=== PATIENT | male | born 1965 | race Caucasian/White ===

== ENCOUNTER 2018-04-30 16:07 | Emergency (ER) | payer OTHER ==
[~2018-04-30] VITALS: Ht 172.7 cm; Wt 65.8 kg
[~2018-04-30 16:07] MED LIST: LEVAQUIN750 M1 PO; MOTRIN800 MG PO; PREDNISONE10 MG PO; THERAGRAN1 TAB PO; VITAMIN D50000 I3 PO
[2018-04-30 16:08] VITALS: BP 132/82
== END 2018-04-30 16:23 | disposition left against medical advice (07) ==
LOC: ED 16:07
DX: R06.02 Shortness of breath (principal); Z53.21 Procedure and treatment not carried out due to patient leaving prior to being seen by health care provider; F17.200 Nicotine dependence, unspecified, uncomplicated; Z90.49 Acquired absence of other specified parts of digestive tract; Z79.2 Long term (current) use of antibiotics

== ENCOUNTER 2018-06-26 21:29 | Emergency (ER) | payer OTHER ==
[~2018-06-26] VITALS: Ht 175.2 cm; Wt 81.6 kg
--- NOTE | ~2018-06-26 | EKG ---
[place], [place] ELECTROCARDIOGRAM REPORT NAME: HELDER BROWN UNIT #: [id number] ROOM: DOCTOR: EPIPHANY DRAFT REPORT BIRTHDATE: [birth year] [facility] Test Date: 2018-06-26 Test Time: 22:05:17 Pat Name: HELDER BROWN Department: ER Room: Gender: M Television Mechanic: ALIZE : 1965 Requested By: GURWINDER LOWRY Order Number: [id number] Reading MD: Zack Birmingham MD Measurements Intervals [place] Rate: 81 P: 84 MN: 160 QRS: 83 QRSD: 87 T: 57 QT: 367 QTc: 426 Interpretive Statements Sinus rhythm Possible left atrial enlargement Borderline low voltage, extremity leads Compared to ECG 04/14/2018 15:09:15 Sinus tachycardia no longer present Electronically Signed On 06-27-2018 7:57:01 PST by Zack Birmingham MD CM:EKGRPT:ELECTROCARDIOGRAM REPORT [id number] GURWINDER LOWRY MD EPIPHANY DRAFT REPORT GURWINDER LOWRY MD
[2018-06-26 22:20] VITALS: BP 125/70
[2018-06-26 22:40] LABS: BASO # 0.1 10*3/uL (0.0-0.1); BASO % 1.7 % (0.0-1.0); EOS # 0.4 10*3/uL (0.0-0.4); EOS % 6.6 % (1.0-4.0); HEMATOCRIT 42.3 % (42.0-52.0); HEMOGLOBIN 14.3 g/dl (14.0-18.0); LYMPH # 1.7 10*3/uL (1.3-4.4); LYMPH % 28.9 % (27.0-41.0); MEAN CORPUSCULAR HGB 31.4 pg (27.0-31.0); MEAN CORPUSCULAR HGB CONC 33.8 g/dl (33.0-37.0); MEAN PLATELET VOLUME 9.5 fl (9.6-12.3); MONO # 0.6 10*3/uL (0.1-1.0); MONO % 10.8 % (3.0-9.0); NEUT # 3.1 10*3/uL (2.3-7.9); NEUT % 51.7 % (47.0-73.0); PLATELET COUNT AUTOMATED 181 10*3/uL (130-400); RED BLOOD COUNT 4.55 10*6/uL (4.50-5.90); RED CELL DISTRI WIDTH 14.8 % (0-14.5)
[2018-06-26 22:58] LABS: ALBUMIN 3.2 gm/dl (3.1-4.5); ALKALINE PHOSPHATASE 71 U/L (45-117); BUN 5 mg/dl (7-24); CHLORIDE 100 mmol/L (98-107); CREATININE 0.76 mg/dL (0.70-1.30); POTASSIUM 4.2 mmol/L (3.5-5.1); SGOT/AST 32 IU/L (3-35); SGPT/ALT 28 U/L (12-78); SODIUM 132 mmol/L (136-145); TOTAL PROTEIN 6.5 gm/dL (6.4-8.2)
[2018-06-26 23:03] LABS: TROPONIN I < 0.015 ng/ml (<0.045)
[2018-06-26] MEDS ORDERED: PREDNISONE10 MG PO (23:45)
[2018-06-26] MEDS ORDERED: ZITHROMAX250 MG PO (23:45)
[2018-06-26] MEDS ORDERED: PROAIR HFA8.5 GM INH (23:48)
== END 2018-06-27 00:01 | disposition home or self-care (01) ==
LOC: ED 21:29
PROVIDERS: Emergency Medicine Emergency Medical Services
DX: J44.1 Chronic obstructive pulmonary disease with (acute) exacerbation (principal); F17.210 Nicotine dependence, cigarettes, uncomplicated; Z90.49 Acquired absence of other specified parts of digestive tract

== ENCOUNTER → 2019-03-27 | Outpatient (CLI) | payer MEDICAID ==
[~2019-03-27] MED LIST changes: +B12,B-12,B 12500 MC1 PO; +CEPHALEXIN500 M1 PO; +DALI500T PO; +K-TAB10 MEQ PO; +KEFLEX500 M1 PO; +LASIX20 MG PO; +MEDROL DOSEPAK4 MG PO; +NICODERM CQ1 EAC2 TD; +NICODERM T; +PROAIR HFA8.5 GM INH; +PROVENTIL HFA6.7 GM INH; +SPIRIVA18 MCG PO; +SYMB160 INH; +VENTOLIN 02.5 MG/3 M INH; +ZITHROMAX250 MG PO
== END | disposition home or self-care (01) ==
LOC: US 15:30
DX: R60.0 Localized edema (principal)

== ENCOUNTER 2019-04-07 22:56 | Emergency (ER) | payer MEDICAID ==
[~2019-04-07] VITALS: Ht 175.2 cm; Wt 90.1 kg
--- NOTE | ~2019-04-07 | EKG ---
[place], [place] ELECTROCARDIOGRAM REPORT NAME: HEDLER BROWN UNIT #: [id number] ROOM: DOCTOR: EPIPHANY DRAFT REPORT BIRTHDATE: [birth year] [facility] Test Date: 2019-04-07 Test Time: 23:36:10 Pat Name: HELDER BROWN Department: ED Room: Gender: M [employer] Etl Developer: Zack Nolan : 1965 Requested By: ENRIQUE CANO Order Number: [id number] Reading MD: Caro Ibarra MD Measurements Intervals [place] Rate: 90 P: 75 AR: 156 QRS: 81 QRSD: 92 T: 41 QT: 361 QTc: 442 Interpretive Statements Sinus rhythm Borderline low voltage, extremity leads Compared to ECG 12/09/2018 13:44:31 No significant changes Electronically Signed On 04-21-2019 7:28:04 PDT by Caro Ibarra MD CM:EKGRPT:ELECTROCARDIOGRAM REPORT [id number] ENRIQUE COE DRAFT REPORT ENRIQUE CANO DO
[~2019-04-07 22:56] MED LIST changes: -KEFLEX500 M1 PO
[2019-04-08 00:13] LABS: BASO # 0.1 10*3/uL (0.0-0.1); BASO % 0.8 % (0.0-1.0); EOS # 0.5 10*3/uL (0.0-0.4); EOS % 5.2 % (1.0-4.0); HEMOGLOBIN 14.7 g/dl (14.0-18.0); LYMPH # 1.9 10*3/uL (1.3-4.4); LYMPH % 22.5 % (27.0-41.0); MEAN CELL VOLUME 93.8 fl (80.0-94.0); MEAN CORPUSCULAR HGB 30.6 pg (27.0-31.0); MEAN CORPUSCULAR HGB CONC 32.7 g/dl (33.0-37.0); MEAN PLATELET VOLUME 9.5 fl (9.6-12.3); MONO # 0.6 10*3/uL (0.1-1.0); MONO % 7.4 % (3.0-9.0); NEUT # 5.5 10*3/uL (2.3-7.9); NEUT % 63.6 % (47.0-73.0); PLATELET COUNT AUTOMATED 262 10*3/uL (130-400); RED CELL DISTRI WIDTH 13.5 % (0-14.5); WHITE BLOOD COUNT 8.6 10*3/uL (4.8-10.8)
[2019-04-08 00:24] LABS: ACT PARTIAL THROMBO TIME 26.2 SECONDS (20.0-32.1); INTERNATIONAL NORM RATIO 0.9 (2.0-3.5)
[2019-04-08 00:26] VITALS: BP 114/74
[2019-04-08 00:30] LABS: ALBUMIN 2.9 gm/dl (3.1-4.5); ALKALINE PHOSPHATASE 70 U/L (45-117); BUN 7 mg/dl (7-24); CHLORIDE 102 mmol/L (98-107); CREATININE 0.88 mg/dL (0.70-1.30); LIPASE 117 U/L (73-393); POTASSIUM 3.9 mmol/L (3.5-5.1); SGOT/AST 15 IU/L (3-35); SGPT/ALT 18 U/L (12-78); SODIUM 135 mmol/L (136-145); TOTAL PROTEIN 6.8 gm/dL (6.4-8.2); TROPONIN I < 0.015 ng/ml (<0.045)
[2019-04-08 00:50] LABS: BILIRUBIN NEGATIVE (NEGATIVE); BLOOD NEGATIVE (NEGATIVE); CLARITY CLEAR (CLEAR); COLOR YELLOW (YELLOW); GLUCOSE NEGATIVE (NEGATIVE); KETONE NEGATIVE (NEGATIVE); LEUKO ESTERASE NEGATIVE (NEGATIVE); NITRITE NEGATIVE (NEGATIVE); SPECIFIC GRAVITY <= 1.005 (1.005-1.030); UROBILINOGEN 0.2 E.U./dl (0.2-1.0)
[2019-04-08] MEDS ORDERED: KEFLEX500 M1 PO (01:02)
[2019-04-08 01:15] LABS: RBC 0-2 rbc/hpf (0-2)
== END 2019-04-08 01:30 | disposition home or self-care (01) ==
LOC: ED 22:56
PROVIDERS: Student in an Organized Health Care Education/Training Program
DX: Z04.3 Encounter for examination and observation following other accident (principal); J44.9 Chronic obstructive pulmonary disease, unspecified; Z72.0 Tobacco use; Z79.899 Other long term (current) drug therapy; W19.XXXA Unspecified fall, initial encounter; Y93.89 Activity, other specified; Y92.89 Other specified places as the place of occurrence of the external cause; Y99.8 Other external cause status

== ENCOUNTER → 2019-05-01 | Outpatient (CLI) | payer MEDICAID ==
[~2019-05-01] MED LIST changes: +KEFLEX500 M1 PO
[2019-05-02 05:04] LABS: ALPHA-1-ANTITRYPSIN, SERUM 185 mg/dL (90-200)
== END | disposition home or self-care (01) ==
LOC: LAB 11:56
PROVIDERS: Internal Medicine Critical Care Medicine
DX: J44.9 Chronic obstructive pulmonary disease, unspecified (principal)

== ENCOUNTER → 2019-10-02 | Outpatient (CLI) | payer MEDICAID ==
[2019-10-02 10:32] LABS: HEMATOCRIT 48.7 % (42.0-52.0); HEMOGLOBIN 15.6 g/dl (14.0-18.0); MEAN CORPUSCULAR HGB 29.2 pg (27.0-31.0); MEAN PLATELET VOLUME 9.8 fl (9.6-12.3); RED BLOOD COUNT 5.35 10*6/uL (4.50-5.90); RED CELL DISTRI WIDTH 14.1 % (0-14.5); WHITE BLOOD COUNT 9.3 10*3/uL (4.8-10.8)
[2019-10-02 10:49] LABS: ALBUMIN 3.3 gm/dl (3.1-4.5); ALKALINE PHOSPHATASE 80 U/L (45-117); BUN 10 mg/dl (7-24); CHLORIDE 108 mmol/L (98-107); CHOLESTEROL 143 mg/dL (<200); CREATININE 1.22 mg/dL (0.70-1.30); HDL CHOLESTEROL 48 mg/dl (40-60); LDL CHOLESTEROL 83 mg/dL (9-159); SGOT/AST 12 IU/L (3-35); SGPT/ALT 18 U/L (12-78); SODIUM 140 mmol/L (136-145); TOTAL PROTEIN 7.5 gm/dL (6.4-8.2); TRIGLYCERIDES 62 mg/dl (<150); VLDL CHOLESTEROL 12 mg/dL (6-40)
== END | disposition home or self-care (01) ==
LOC: LAB 10:17
PROVIDERS: Physician Assistant
DX: J44.1 Chronic obstructive pulmonary disease with (acute) exacerbation (principal); G62.9 Polyneuropathy, unspecified; F17.200 Nicotine dependence, unspecified, uncomplicated

== ENCOUNTER 2020-03-09 14:17 | Observation (INO) | payer MEDICAID ==
[~2020-03-09] VITALS: Ht 175.2 cm; Wt 85.3 kg
[2020-03-09 14:41] LABS: BASO # 0.1 10*3/uL (0.0-0.1); EOS # 0.2 10*3/uL (0.0-0.4); EOS % 2.3 % (1.0-4.0); HEMATOCRIT 48.1 % (42.0-52.0); LYMPH # 1.3 10*3/uL (1.3-4.4); LYMPH % 13.8 % (27.0-41.0); MEAN CELL VOLUME 86.5 fl (80.0-94.0); MEAN CORPUSCULAR HGB 28.6 pg (27.0-31.0); MEAN CORPUSCULAR HGB CONC 33.1 g/dl (33.0-37.0); MEAN PLATELET VOLUME 9.3 fl (9.6-12.3); MONO # 0.6 10*3/uL (0.1-1.0); MONO % 6.2 % (3.0-9.0); NEUT % 76.4 % (47.0-73.0); PLATELET COUNT AUTOMATED 293 10*3/uL (130-400); RED BLOOD COUNT 5.56 10*6/uL (4.50-5.90); RED CELL DISTRI WIDTH 14.2 % (0-14.5); WHITE BLOOD COUNT 9.1 10*3/uL (4.8-10.8)
[2020-03-09 14:52] LABS: ACT PARTIAL THROMBO TIME 24.9 SECONDS (20.0-32.1); INTERNATIONAL NORM RATIO 0.9 (2.0-3.5)
[2020-03-09 14:59] LABS: ALBUMIN 3.1 gm/dl (3.1-4.5); ALKALINE PHOSPHATASE 97 U/L (45-117); BUN 8 mg/dl (7-24); CHLORIDE 108 mmol/L (98-107); CREATININE 1.11 mg/dL (0.70-1.30); POTASSIUM 4.1 mmol/L (3.5-5.1); SGOT/AST 19 IU/L (3-35); SGPT/ALT 22 U/L (12-78); SODIUM 138 mmol/L (136-145); TOTAL PROTEIN 7.5 gm/dL (6.4-8.2)
[2020-03-09 15:02] LABS: TROPONIN I < 0.015 ng/ml (<0.045)
[2020-03-09 15:49] VITALS: BP 113/72
[2020-03-09 16:15] VITALS: BP 108/81
[2020-03-09 17:11] VITALS: BP 114/68
[2020-03-09 17:19] VITALS: BP 114/68
[2020-03-09 18:00] VITALS: BP 120/70
[2020-03-09 20:00] VITALS: BP 119/78
[2020-03-10] VITALS: BP 112/72
[2020-03-10 06:07] LABS: BUN 14 mg/dl (7-24); CHLORIDE 105 mmol/L (98-107); CHOLESTEROL 165 mg/dL (<200); CREATININE 1.04 mg/dL (0.70-1.30); POTASSIUM 3.9 mmol/L (3.5-5.1); SODIUM 136 mmol/L (136-145); TRIGLYCERIDES 43 mg/dl (<150); VLDL CHOLESTEROL 9 mg/dL (6-40)
[2020-03-10 06:18] LABS: HDL CHOLESTEROL 44 mg/dl (40-60); LDL CHOLESTEROL 112 mg/dL (9-159); THYROID STIM HORMONE (HS) 0.614 uIU/ml (0.358-4.75)
[2020-03-10 06:27] LABS: HEMATOCRIT 46.9 % (42.0-52.0); MEAN CORPUSCULAR HGB 28.8 pg (27.0-31.0); MEAN CORPUSCULAR HGB CONC 32.4 g/dl (33.0-37.0); MEAN PLATELET VOLUME 9.9 fl (9.6-12.3); PLATELET COUNT AUTOMATED 249 10*3/uL (130-400); RED BLOOD COUNT 5.27 10*6/uL (4.50-5.90); RED CELL DISTRI WIDTH 14.4 % (0-14.5); WHITE BLOOD COUNT 7.3 10*3/uL (4.8-10.8)
[2020-03-10 06:48] LABS: PLATELET SUFFICIENCY NORMAL (NORMAL); TOTAL CELLS COUNTED 100 #CELLS
[2020-03-10 06:49] LABS: BURR CELLS FEW
[2020-03-10 08:00] VITALS: BP 118/72
[2020-03-10 08:19] LABS: VITAMIN D, 25-HYDROXY 18.7 ng/mL (30-100)
[2020-03-10 12:00] VITALS: BP 122/72
[2020-03-10] MEDS ORDERED: VITAMIN D350 MC2 PO (14:35)
== END 2020-03-10 15:55 | disposition home or self-care (01) ==
LOC: ED 14:17 → 4E 17:10 → EDHOLD 17:10 → 4E 17:10
PROVIDERS: Emergency Medicine; Internal Medicine; ADMIT Internal Medicine
DX: R07.89 Other chest pain (principal); R06.00 Dyspnea, unspecified; F10.129 Alcohol abuse with intoxication, unspecified; F17.200 Nicotine dependence, unspecified, uncomplicated; J44.9 Chronic obstructive pulmonary disease, unspecified; G31.84 Mild cognitive impairment of uncertain or unknown etiology; R00.0 Tachycardia, unspecified; E87.8 Other disorders of electrolyte and fluid balance, not elsewhere classified; R65.10 Systemic inflammatory response syndrome (SIRS) of non-infectious origin without acute organ dysfunction; R73.9 Hyperglycemia, unspecified; E83.41 Hypermagnesemia

== ENCOUNTER → 2020-10-07 | Outpatient (CLI) | payer MEDICAID ==
[~2020-10-07] MED LIST changes: +VITAMIN D350 MC2 PO
== END | disposition home or self-care (01) ==
LOC: RAD 13:14
PROVIDERS: ATTEND Physician Assistant
DX: J44.9 Chronic obstructive pulmonary disease, unspecified (principal); E53.8 Deficiency of other specified B group vitamins; G62.9 Polyneuropathy, unspecified; F17.210 Nicotine dependence, cigarettes, uncomplicated; Z12.5 Encounter for screening for malignant neoplasm of prostate

== ENCOUNTER → 2021-07-26 | Outpatient (CLI) | payer MEDICAID ==
[~2021-07-26] MED LIST changes: +MELOXICAM15 MG PO
== END | disposition home or self-care (01) ==
LOC: CARD 00:53
PROVIDERS: ATTEND Internal Medicine Cardiovascular Disease
DX: R06.02 Shortness of breath (principal); R06.00 Dyspnea, unspecified; Z72.0 Tobacco use

== ENCOUNTER → 2021-12-22 | Outpatient (CLI) | payer MEDICAID ==
[2021-12-22 15:08] LABS: CHOLESTEROL 141 mg/dL (<200); LDL CHOLESTEROL 84 mg/dL (9-159); TRIGLYCERIDES 94 mg/dl (<150)
== END | disposition home or self-care (01) ==
LOC: LAB 14:11
PROVIDERS: ATTEND Internal Medicine
DX: I25.119 Atherosclerotic heart disease of native coronary artery with unspecified angina pectoris (principal)

== ENCOUNTER → 2021-12-30 | Outpatient (CLI) | payer MEDICAID | END | disposition home or self-care (01) | LOC: CARD 00:33 | PROVIDERS: ATTEND Internal Medicine | DX: I25.119 Atherosclerotic heart disease of native coronary artery with unspecified angina pectoris (principal); I44.7 Left bundle-branch block, unspecified ==

== ENCOUNTER → 2022-03-01 | Outpatient (CLI) | payer MEDICAID | END | disposition home or self-care (01) | LOC: ORTHO 01:42 | PROVIDERS: ATTEND Orthopaedic Surgery | DX: M25.521 Pain in right elbow (principal) ==

== ENCOUNTER 2023-01-28 05:42 | Emergency (ER) | payer MEDICAID ==
[~2023-01-28] VITALS: Ht 175.2 cm; Wt 77.1 kg
[2023-01-28 06:22] LABS: BASO # 0.1 10*3/uL (0.0-0.1); BASO % 1.4 % (0.0-1.0); EOS # 0.5 10*3/uL (0.0-0.4); EOS % 8.3 % (1.0-4.0); HEMATOCRIT 49.1 % (42.0-52.0); LYMPH # 1.1 10*3/uL (1.3-4.4); MEAN CELL VOLUME 88.2 fl (80.0-94.0); MEAN CORPUSCULAR HGB 29.4 pg (27.0-31.0); MEAN CORPUSCULAR HGB CONC 33.4 g/dl (33.0-37.0); MEAN PLATELET VOLUME 9.5 fl (9.6-12.3); MONO # 0.3 10*3/uL (0.1-1.0); MONO % 4.9 % (3.0-9.0); NEUT # 3.9 10*3/uL (2.3-7.9); NEUT % 67.1 % (47.0-73.0); PLATELET COUNT AUTOMATED 209 10*3/uL (130-400); RED BLOOD COUNT 5.57 10*6/uL (4.50-5.90); WHITE BLOOD COUNT 5.9 10*3/uL (4.8-10.8)
[2023-01-28 07:17] LABS: ALKALINE PHOSPHATASE 71 U/L (46-116); BUN 6 mg/dl (9-23); CHLORIDE 102 mmol/L (98-107); POTASSIUM 4.4 mmol/L (3.4-5.1); SGPT/ALT 14 U/L (10-49); TOTAL PROTEIN 7.5 gm/dL (6.0-8.0)
[2023-01-28 07:28] VITALS: BP 126/70
[2023-01-28] MEDS ORDERED: PREDNISONE10 MG PO (09:07)
[2023-01-28] MEDS ORDERED: OMNICEF300 MG PO (09:07)
[2023-01-28] MEDS ORDERED: ZITHROMAX250 MG PO (09:07)
== END 2023-01-28 09:27 | disposition home or self-care (01) ==
LOC: ED 05:42
PROVIDERS: Internal Medicine
DX: J44.1 Chronic obstructive pulmonary disease with (acute) exacerbation (principal); F17.200 Nicotine dependence, unspecified, uncomplicated; Z79.899 Other long term (current) drug therapy; Z90.49 Acquired absence of other specified parts of digestive tract

== ENCOUNTER 2024-01-02 08:49 | Inpatient (IN) | payer MEDICAID ==
[~2024-01-02] VITALS: Ht 175.3 cm; Wt 92.5 kg
[~2024-01-02 08:49] MED LIST changes: +OMNICEF300 MG PO; +PREDNISONE50 MG PO; +VENT7GM INH; +VITAMIN D350 MCG PO
[2024-01-02 08:59] VITALS: BP 118/78
[2024-01-02] MEDS ORDERED: Albuterol Sulf/Ipratropium 3 ML VIAL NEB ONE (09:15)
[2024-01-02] MEDS ORDERED: methylPREDNISolone sod succ 125 MG VIAL IV ONE (09:15)
[2024-01-02 09:17] LABS: BASO # 0.1 10*3/uL (0.0-0.1); BASO % 0.6 % (0.0-1.0); EOS % 0.4 % (1.0-4.0); LYMPH # 1.3 10*3/uL (1.3-4.4); LYMPH % 15.5 % (27.0-41.0); MEAN CELL VOLUME 90.3 fl (80.0-94.0); MEAN CORPUSCULAR HGB 29.4 pg (27.0-31.0); MEAN CORPUSCULAR HGB CONC 32.5 g/dl (33.0-37.0); MEAN PLATELET VOLUME 9.3 fl (9.6-12.3); MONO # 0.4 10*3/uL (0.1-1.0); MONO % 4.7 % (3.0-9.0); NEUT # 6.5 10*3/uL (2.3-7.9); NEUT % 78.3 % (47.0-73.0); PLATELET COUNT AUTOMATED 186 10*3/uL (130-400); RED BLOOD COUNT 4.87 10*6/uL (4.50-5.90); RED CELL DISTRI WIDTH 14.5 % (0-14.5); WHITE BLOOD COUNT 8.3 10*3/uL (4.8-10.8)
[2024-01-02 09:30] LABS: ACT PARTIAL THROMBO TIME 24.3 SECONDS (20.0-32.1)
[2024-01-02 09:34] LABS: ALKALINE PHOSPHATASE 61 U/L (46-116); BUN 7 mg/dl (9-23); CHLORIDE 105 mmol/L (98-107); LIPASE 31 U/L (12-53); POTASSIUM 3.9 mmol/L (3.4-5.1); SGPT/ALT 9 U/L (5-49); TOTAL PROTEIN 6.7 gm/dL (6.0-8.0)
[2024-01-02 09:37] LABS: ETHYL ALCOHOL < 3.0 mg/dl (<3)
[2024-01-02] MEDS ORDERED: AZITHROMYCIN 250 ML IV ONE (11:00)
[2024-01-02] MEDS ORDERED: Ceftriaxone Sodium 1 GM/10 ML SYR IV ONE (11:00)
[2024-01-02] MEDS ORDERED: BISACODYL 10 MG SUPP R PRN (13:40)
[2024-01-02] MEDS ORDERED: Acetaminophen/Hydrocodone 5 MG/325 MG TABLET PO PRN (13:40)
[2024-01-02] MEDS ORDERED: BISACODYL 5 MG TAB PO PRN (13:40)
[2024-01-02] MEDS ORDERED: ACETAMINOPHEN 325 MG TAB PO PRN (13:40)
[2024-01-02] MEDS ORDERED: Ondansetron Hydrochloride 4 MG/2 ML VIAL IV PRN (13:40)
[2024-01-02] MEDS ORDERED: ACETAMINOPHEN 650 MG SUPP R PRN (13:40)
[2024-01-02] MEDS ORDERED: Albuterol Sulf/Ipratropium 3 ML VIAL NEB SCH (13:45)
[2024-01-02 20:10] VITALS: BP 149/73
[2024-01-02 20:37] VITALS: BP 117/73
[2024-01-02 21:39] LABS: BILIRUBIN Negative (Negative); BLOOD Negative (Negative); CLARITY Clear (Clear); COLOR Yellow (Yellow); GLUCOSE Negative (Negative); KETONE Negative (Negative); LEUKO ESTERASE Negative (Negative); NITRITE Negative (Negative); PH 6.5 (4.5-8.0)
[2024-01-02 21:45] LABS: RBC 0-2 rbc/hpf (0-2); WBC 0-2 wbc/hpf (0-5)
[2024-01-02 21:46] LABS: URINE AMPHETAMINES Negative (1000ng/ml); URINE BARBITURATES Negative (200ng/ml); URINE BENZODIAZEPINES Negative (200ng/ml); URINE CANNABINOIDS (THC) Negative (50ng/ml); URINE COCAINE Negative (300ng/ml); URINE METHADONE Negative (300ng/ml); URINE OPIATES Negative (300ng/ml); URINE PHENCYCLIDINE Negative (25ng/ml)
[2024-01-02] MEDS ORDERED: GUAIFENESIN 600 MG TAB ER PO SCH (22:00)
[2024-01-02] MEDS ORDERED: methylPREDNISolone sod succ 40 MG VIAL IV SCH (22:00)
[2024-01-02 22:36] VITALS: BP 115/73
[2024-01-03] VITALS (7 sets, daily range): BP systolic 111–136; BP diastolic 62–78
[2024-01-03 05:52] LABS: BUN 9 mg/dl (9-23); CHLORIDE 101 mmol/L (98-107); POTASSIUM 4.4 mmol/L (3.4-5.1)
[2024-01-03 06:22] LABS: HEMATOCRIT 43.4 % (42.0-52.0); MEAN CELL VOLUME 88.2 fl (80.0-94.0); MEAN CORPUSCULAR HGB 29.3 pg (27.0-31.0); MEAN CORPUSCULAR HGB CONC 33.2 g/dl (33.0-37.0); MEAN PLATELET VOLUME 10.2 fl (9.6-12.3); PLATELET COUNT AUTOMATED 177 10*3/uL (130-400); RED BLOOD COUNT 4.92 10*6/uL (4.50-5.90); RED CELL DISTRI WIDTH 14.6 % (0-14.5); WHITE BLOOD COUNT 6.9 10*3/uL (4.8-10.8)
[2024-01-03 06:32] LABS: MANUAL DIFF REFLEX YES
[2024-01-03 07:00] LABS: TOTAL CELLS COUNTED 100 #CELLS
[2024-01-03 07:03] LABS: PLATELET SUFFICIENCY NORMAL (NORMAL)
[2024-01-03] MEDS ORDERED: Nicotine 21 MG PATCH T SCH (10:00)
[2024-01-03] MEDS ORDERED: Enoxaparin Sodium 40 MG/0.4 ML SYR SC SCH (10:00)
[2024-01-03] MEDS ORDERED: Ceftriaxone Sodium 1 GM in SYRINGE INFUSION 10 ML IV SCH (11:00)
[2024-01-03] MEDS ORDERED: methylPREDNISolone sod succ 40 MG VIAL IV SCH (14:00)
[2024-01-04] VITALS: BP 152/75
[2024-01-04 05:50] LABS: BUN 14 mg/dl (9-23); CHLORIDE 103 mmol/L (98-107); POTASSIUM 4.8 mmol/L (3.4-5.1)
[2024-01-04 06:16] LABS: HEMATOCRIT 43.3 % (42.0-52.0); LYMPH # 0.6 10*3/uL (1.3-4.4); LYMPH % 8.8 % (27.0-41.0); MEAN CELL VOLUME 88.5 fl (80.0-94.0); MEAN CORPUSCULAR HGB 29.4 pg (27.0-31.0); MEAN CORPUSCULAR HGB CONC 33.3 g/dl (33.0-37.0); MEAN PLATELET VOLUME 10.1 fl (9.6-12.3); MONO # 0.2 10*3/uL (0.1-1.0); MONO % 3.1 % (3.0-9.0); NEUT # 5.9 10*3/uL (2.3-7.9); NEUT % 87.5 % (47.0-73.0); PLATELET COUNT AUTOMATED 174 10*3/uL (130-400); RED BLOOD COUNT 4.89 10*6/uL (4.50-5.90); RED CELL DISTRI WIDTH 14.8 % (0-14.5); WHITE BLOOD COUNT 6.7 10*3/uL (4.8-10.8)
[2024-01-04 08:00] VITALS: BP 124/60; BP 126/76
[2024-01-04 11:07] LABS: ABG BASE EXCESS 2.7 mmol/L (-2.0-2.0); ARTERIAL BLOOD GAS PH 7.468 (7.35-7.45)
[2024-01-04 12:00] VITALS: BP 131/79
[2024-01-04] MEDS ORDERED: FUROSEMIDE 40 MG/4 ML VIAL IV ONE (12:00)
[2024-01-04] MEDS ORDERED: methylPREDNISolone sod succ 125 MG VIAL IV SCH (14:00)
[2024-01-04 16:00] VITALS: BP 139/89
[2024-01-04 20:00] VITALS: BP 147/80
[2024-01-04] MEDS ORDERED: hydrOXYzine pamoate 25 MG CAP PO ONE (20:55)
[2024-01-05] VITALS: BP 132/71
[2024-01-05 06:06] LABS: BUN 16 mg/dl (9-23); CHLORIDE 99 mmol/L (98-107); POTASSIUM 4.7 mmol/L (3.4-5.1)
[2024-01-05 08:00] VITALS: BP 114/60
[2024-01-05] MEDS ORDERED: FUROSEMIDE 40 MG/4 ML VIAL IV ONE (11:05)
[2024-01-05 12:00] VITALS: BP 141/85
[2024-01-05] MEDS ORDERED: Albuterol Sulfate 2.5 MG/3 ML VIAL NEB SCH (14:50)
[2024-01-05] MEDS ORDERED: IOHEXOL 300 MG/ML 100 ML VIAL IV ONE (15:40)
[2024-01-05 16:00] VITALS: BP 155/90
[2024-01-05] MEDS ORDERED: Cefepime Hydrochloride 2 GM,IV 1 EA in SODIUM CHLORIDE 0.9% 50 ML IV SCH (16:00)
[2024-01-05 20:00] VITALS: BP 117/69
[2024-01-06] VITALS: BP 119/75
[2024-01-06 07:10] LABS: BUN 19 mg/dl (9-23); CHLORIDE 99 mmol/L (98-107); POTASSIUM 4.3 mmol/L (3.4-5.1)
[2024-01-06 08:00] VITALS: BP 108/67
[2024-01-06] MEDS ORDERED: FUROSEMIDE 40 MG/4 ML VIAL IV ONE (08:55)
[2024-01-06] MEDS ORDERED: AZITHROMYCIN 250 ML IV SCH (10:00)
[2024-01-06] MEDS ORDERED: ALBUTEROL 8 GM INHALER INH PRN (11:25)
[2024-01-06] MEDS ORDERED: Albuterol Sulfate 2.5 MG/3 ML VIAL NEB PRN (11:30)
[2024-01-06 12:00] VITALS: BP 121/59
[2024-01-06] MEDS ORDERED: Albuterol Sulfate 2.5 MG/3 ML VIAL NEB SCH (15:25)
[2024-01-06 20:00] VITALS: BP 127/83
[2024-01-07] VITALS: BP 120/78
[2024-01-07 05:55] LABS: BUN 17 mg/dl (9-23); CHLORIDE 97 mmol/L (98-107); POTASSIUM 4.4 mmol/L (3.4-5.1)
[2024-01-07 08:00] VITALS: BP 122/73
[2024-01-07 12:00] VITALS: BP 125/74
[2024-01-07] MEDS ORDERED: FUROSEMIDE 40 MG/4 ML VIAL IV SCH (12:10)
[2024-01-07] MEDS ORDERED: methylPREDNISolone sod succ 40 MG VIAL IV SCH (14:00)
[2024-01-07 16:00] VITALS: BP 144/86
[2024-01-07 20:00] VITALS: BP 114/66
[2024-01-08] VITALS: BP 124/74
[2024-01-08 07:11] LABS: BASO % 0.1 % (0.0-1.0); EOS % 0.1 % (1.0-4.0); HEMATOCRIT 47.5 % (42.0-52.0); LYMPH # 0.6 10*3/uL (1.3-4.4); LYMPH % 5.9 % (27.0-41.0); MEAN CELL VOLUME 87.5 fl (80.0-94.0); MEAN CORPUSCULAR HGB 29.3 pg (27.0-31.0); MEAN CORPUSCULAR HGB CONC 33.5 g/dl (33.0-37.0); MEAN PLATELET VOLUME 9.7 fl (9.6-12.3); MONO # 0.4 10*3/uL (0.1-1.0); MONO % 4.5 % (3.0-9.0); NEUT # 8.5 10*3/uL (2.3-7.9); NEUT % 88.5 % (47.0-73.0); PLATELET COUNT AUTOMATED 160 10*3/uL (130-400); RED BLOOD COUNT 5.43 10*6/uL (4.50-5.90); RED CELL DISTRI WIDTH 14.2 % (0-14.5); WHITE BLOOD COUNT 9.6 10*3/uL (4.8-10.8)
[2024-01-08 07:42] LABS: BUN 16 mg/dl (9-23); CHLORIDE 98 mmol/L (98-107)
[2024-01-08 08:00] VITALS: BP 108/83
[2024-01-08 12:00] VITALS: BP 138/78
[2024-01-08 16:00] VITALS: BP 135/79
[2024-01-08 20:00] VITALS: BP 130/79
[2024-01-09] VITALS (9 sets, daily range): BP systolic 104–136; BP diastolic 60–77
[2024-01-09 06:27] LABS: BASO % 0.1 % (0.0-1.0); HEMATOCRIT 47.3 % (42.0-52.0); LYMPH # 0.6 10*3/uL (1.3-4.4); LYMPH % 6.6 % (27.0-41.0); MEAN CELL VOLUME 89.8 fl (80.0-94.0); MEAN CORPUSCULAR HGB 29.2 pg (27.0-31.0); MEAN CORPUSCULAR HGB CONC 32.6 g/dl (33.0-37.0); MONO # 0.5 10*3/uL (0.1-1.0); MONO % 5.2 % (3.0-9.0); NEUT # 7.9 10*3/uL (2.3-7.9); NEUT % 87.5 % (47.0-73.0); PLATELET COUNT AUTOMATED 158 10*3/uL (130-400); RED BLOOD COUNT 5.27 10*6/uL (4.50-5.90); RED CELL DISTRI WIDTH 14.1 % (0-14.5); WHITE BLOOD COUNT 9.1 10*3/uL (4.8-10.8)
[2024-01-09 07:39] LABS: BUN 21 mg/dl (9-23); CHLORIDE 97 mmol/L (98-107); POTASSIUM 4.2 mmol/L (3.4-5.1)
[2024-01-09] MEDS ORDERED: SODIUM CHLORIDE 0.9% 1,000 ML IV ONE (08:37)
[2024-01-09] MEDS ORDERED: Albuterol Sulfate 2.5 MG/0.5 ML VIAL NEB ONE ×2 (08:55→09:04)
[2024-01-09] MEDS ORDERED: Lidocaine Hydrochloride 4% 5 ML AMP NEB ONE (08:55)
[2024-01-09] MEDS ORDERED: Lidocaine Hydrochloride 4% 5 ML AMP ONE (09:04)
[2024-01-09] MEDS ORDERED: Albuterol Sulf/Ipratropium 3 ML VIAL NEB ONE ×2 (10:00→10:16)
[2024-01-09 12:46] LABS: BF LYMPHOCYTES 8 %; BF MACROPHAGES 40 %; BF NEUTROPHILS 52 %
[2024-01-09] MEDS ORDERED: PROPOFOL 200 MG/20 ML VIAL IV ONE (16:59)
[2024-01-09] MEDS ORDERED: methylPREDNISolone sod succ 40 MG VIAL IV SCH (18:00)
[2024-01-10] VITALS: BP 123/60
[2024-01-10 08:00] VITALS: BP 115/65
[2024-01-10] MEDS ORDERED: LASIX40 MG PO (10:43)
[2024-01-10] MEDS ORDERED: ZITHROMAX250 MG PO (10:43)
[2024-01-10] MEDS ORDERED: Ipratropium Brom3 ML INH (10:43)
[2024-01-10] MEDS ORDERED: MUCINEX1200 M1 PO (10:43)
[2024-01-10] MEDS ORDERED: PREDNISONE10 MG PO (10:43)
[2024-01-10 14:09] LABS: ACID FAST SPEC PROCESSING Concentration (.)
== END 2024-01-10 12:04 | disposition home or self-care (01) | DRG 133 ==
LOC: ED 08:49 → 4E 11:32 → EDHOLD 11:32 → 4E 01-03 17:18
PROVIDERS: Internal Medicine; Internal Medicine Critical Care Medicine; Student in an Organized Health Care Education/Training Program; ADMIT Internal Medicine; ATTEND Internal Medicine
PROC: 0BC18ZZ Extirpation of Matter from Trachea, Via Natural or Artificial Opening Endoscopic (ICD-10-PCS; principal; 2024-01-09)
PROC: 0BC98ZZ Extirpation of Matter from Lingula Bronchus, Via Natural or Artificial Opening Endoscopic (ICD-10-PCS; 2024-01-09)
PROC: 0BC48ZZ Extirpation of Matter from Right Upper Lobe Bronchus, Via Natural or Artificial Opening Endoscopic (ICD-10-PCS; 2024-01-09)
PROC: 0BC88ZZ Extirpation of Matter from Left Upper Lobe Bronchus, Via Natural or Artificial Opening Endoscopic (ICD-10-PCS; 2024-01-09)
PROC: 0BC58ZZ Extirpation of Matter from Right Middle Lobe Bronchus, Via Natural or Artificial Opening Endoscopic (ICD-10-PCS; 2024-01-09)
PROC: 0BC38ZZ Extirpation of Matter from Right Main Bronchus, Via Natural or Artificial Opening Endoscopic (ICD-10-PCS; 2024-01-09)
PROC: 0BC78ZZ Extirpation of Matter from Left Main Bronchus, Via Natural or Artificial Opening Endoscopic (ICD-10-PCS; 2024-01-09)
PROC: 0BC68ZZ Extirpation of Matter from Right Lower Lobe Bronchus, Via Natural or Artificial Opening Endoscopic (ICD-10-PCS; 2024-01-09)
PROC: 0BCB8ZZ Extirpation of Matter from Left Lower Lobe Bronchus, Via Natural or Artificial Opening Endoscopic (ICD-10-PCS; 2024-01-09)
DX: J96.21 Acute and chronic respiratory failure with hypoxia (principal); E44.0 Moderate protein-calorie malnutrition; T17.590A Other foreign object in bronchus causing asphyxiation, initial encounter; J43.1 Panlobular emphysema; J44.1 Chronic obstructive pulmonary disease with (acute) exacerbation; I10 Essential (primary) hypertension; J20.9 Acute bronchitis, unspecified; J43.9 Emphysema, unspecified; R73.9 Hyperglycemia, unspecified; F17.210 Nicotine dependence, cigarettes, uncomplicated; E55.9 Vitamin D deficiency, unspecified; E78.2 Mixed hyperlipidemia; E66.9 Obesity, unspecified; J96.22 Acute and chronic respiratory failure with hypercapnia; W44.F9XA Other object of natural or organic material, entering into or through a natural orifice, initial encounter; Y93.89 Activity, other specified; Y92.89 Other specified places as the place of occurrence of the external cause; Z90.49 Acquired absence of other specified parts of digestive tract; Z82.49 Family history of ischemic heart disease and other diseases of the circulatory system; Z84.1 Family history of disorders of kidney and ureter; Y99.8 Other external cause status; Z68.30 Body mass index [BMI] 30.0-30.9, adult

== ENCOUNTER → 2024-09-09 | Outpatient (CLI) | payer MEDICAID ==
[~2024-09-09] MED LIST changes: +Ipratropium Brom3 ML INH; +LASIX40 MG PO; +MUCINEX1200 M1 PO
== END | disposition home or self-care (01) ==
LOC: CT 08:54
PROVIDERS: ATTEND Physician Assistant
DX: Z12.2 Encounter for screening for malignant neoplasm of respiratory organs (principal); R91.8 Other nonspecific abnormal finding of lung field; J43.9 Emphysema, unspecified; I25.10 Atherosclerotic heart disease of native coronary artery without angina pectoris; F17.210 Nicotine dependence, cigarettes, uncomplicated